=== PATIENT | female | born 1980 | race Caucasian/White ===

== ENCOUNTER 2018-03-28 14:59 | Inpatient (IN) | payer MEDICARE ==
[~2018-03-28] VITALS: Ht 165.1 cm; Wt 73.6 kg
[2018-03-28 16:00] VITALS: BP 127/77
[2018-03-28 16:25] VITALS: BP 127/77
[2018-03-28 16:41] LABS: BASO % 0.3 % (0.0-1.0); EOS % 0.1 % (1.0-4.0); HEMATOCRIT 39.2 % (37.0-47.0); HEMOGLOBIN 13.4 g/dl (12.0-16.0); LYMPH # 2.5 10*3/uL (1.3-4.4); LYMPH % 28.1 % (27.0-41.0); MEAN CORPUSCULAR HGB 32.1 pg (27.0-31.0); MEAN CORPUSCULAR HGB CONC 34.2 g/dl (33.0-37.0); MEAN PLATELET VOLUME 9.5 fl (9.6-12.3); MONO # 0.4 10*3/uL (0.1-1.0); MONO % 4.5 % (3.0-9.0); NEUT # 5.9 10*3/uL (2.3-7.9); NEUT % 66.7 % (47.0-73.0); PLATELET COUNT AUTOMATED 303 10*3/uL (130-400); RED BLOOD COUNT 4.17 10*6/uL (4.10-5.10); RED CELL DISTRI WIDTH 13.9 % (0-14.5); WHITE BLOOD COUNT 8.9 10*3/uL (4.8-10.8)
[2018-03-28 17:08] LABS: ALBUMIN 4.5 gm/dl (3.1-4.5); ALKALINE PHOSPHATASE 97 U/L (45-117); BUN 9 mg/dl (7-24); CHLORIDE 106 mmol/L (98-107); CREATININE 0.77 mg/dL (0.55-1.02); POTASSIUM 3.7 mmol/L (3.5-5.1); SGOT/AST 13 IU/L (3-35); SGPT/ALT 20 U/L (12-78); SODIUM 137 mmol/L (136-145); TOTAL PROTEIN 8.9 gm/dL (6.4-8.2)
[2018-03-28 17:16] LABS: BETA-HCG, QUANT < 1.0 mIU/mL (1-3); ETHYL ALCOHOL < 3.0 mg/dl (<3)
[2018-03-28 17:23] LABS: URINE AMPHETAMINES < 1000 (1000ng/ml); URINE BARBITURATES > 200 (200ng/ml); URINE BENZODIAZEPINES > 200 (200ng/ml); URINE CANNABINOIDS (THC) < 50 (50ng/ml); URINE COCAINE < 300 (300ng/ml); URINE METHADONE < 300 (300ng/ml); URINE OPIATES > 300 (300ng/ml)
[2018-03-28 17:27] LABS: URINE PHENCYCLIDINE < 25 (25ng/ml)
[2018-03-28 17:31] LABS: BILIRUBIN NEGATIVE (NEGATIVE); BLOOD NEGATIVE (NEGATIVE); CLARITY CLEAR (CLEAR); COLOR YELLOW (YELLOW); GLUCOSE NEGATIVE (NEGATIVE); KETONE NEGATIVE (NEGATIVE); LEUKO ESTERASE NEGATIVE (NEGATIVE); NITRITE NEGATIVE (NEGATIVE); SPECIFIC GRAVITY 1.025 (1.005-1.030); UROBILINOGEN 0.2 E.U./dl (0.2-1.0)
[2018-03-28] MEDS ORDERED: TOPIRAMATE PO (17:55)
[2018-03-28] MEDS ORDERED: XANAX2 M1 PO ×2 (17:55→18:47)
[2018-03-28] MEDS ORDERED: KLONOPIN1 M1 PO (17:56)
[2018-03-28] MEDS ORDERED: AMBIEN10 M1 PO (17:56)
[2018-03-28] MEDS ORDERED: REQUIP0.25 M1 PO (17:57)
[2018-03-28 18:01] LABS: BACTERIA 2+; MUCOUS 2+
[2018-03-28 20:00] VITALS: BP 132/84
[2018-03-29] VITALS: BP 114/72
[2018-03-29 08:00] VITALS: BP 104/60
[2018-03-29 12:00] VITALS: BP 113/67
[2018-03-29 16:00] VITALS: BP 111/65
[2018-03-29 20:00] VITALS: BP 111/64
[2018-03-30 00:30] VITALS: BP 96/52
[2018-03-30 07:07] LABS: BASO % 0.4 % (0.0-1.0); EOS # 0.1 10*3/uL (0.0-0.4); EOS % 1.9 % (1.0-4.0); HEMATOCRIT 36.8 % (37.0-47.0); HEMOGLOBIN 12.3 g/dl (12.0-16.0); MEAN CELL VOLUME 95.3 fl (81.0-99.0); MEAN CORPUSCULAR HGB 31.9 pg (27.0-31.0); MEAN CORPUSCULAR HGB CONC 33.4 g/dl (33.0-37.0); MONO # 0.6 10*3/uL (0.1-1.0); MONO % 7.4 % (3.0-9.0); NEUT # 2.8 10*3/uL (2.3-7.9); NEUT % 37.2 % (47.0-73.0); PLATELET COUNT AUTOMATED 225 10*3/uL (130-400); RED BLOOD COUNT 3.86 10*6/uL (4.10-5.10); RED CELL DISTRI WIDTH 14.3 % (0-14.5); WHITE BLOOD COUNT 7.5 10*3/uL (4.8-10.8)
[2018-03-30 07:33] LABS: CREATININE 0.85 mg/dL (0.55-1.02)
[2018-03-30 08:00] VITALS: BP 103/68; BP 104/62
[2018-03-30 12:00] VITALS: BP 111/43
[2018-03-30 16:00] VITALS: BP 119/36
[2018-03-30 20:00] VITALS: BP 101/68
[2018-03-31] VITALS: BP 91/49
[2018-03-31 08:00] VITALS: BP 111/60
[2018-03-31] MEDS ORDERED: ZOFRAN 4 MG ED2 TAB PO (11:30)
[2018-03-31] MEDS ORDERED: DICYCLOMINE HCL20 MG PO (11:30)
[2018-03-31] MEDS ORDERED: ATARAX,VISTARIL50 MG PO (11:30)
== END 2018-03-31 11:56 | disposition home or self-care (01) | DRG 897 ==
LOC: 4E 14:59
PROVIDERS: Internal Medicine
DX: F11.23 Opioid dependence with withdrawal (principal); F13.10 Sedative, hypnotic or anxiolytic abuse, uncomplicated; R82.71 Bacteriuria; F17.210 Nicotine dependence, cigarettes, uncomplicated; G40.409 Other generalized epilepsy and epileptic syndromes, not intractable, without status epilepticus; Z71.6 Tobacco abuse counseling; Z91.5 Personal history of self-harm; Z86.73 Personal history of transient ischemic attack (TIA), and cerebral infarction without residual deficits; Z90.49 Acquired absence of other specified parts of digestive tract; Z82.0 Family history of epilepsy and other diseases of the nervous system; Z84.89 Family history of other specified conditions; Z88.8 Allergy status to other drugs, medicaments and biological substances

== ENCOUNTER 2018-05-02 11:07 | Inpatient (IN) | payer MEDICARE ==
[~2018-05-02] VITALS: Ht 175.2 cm; Wt 74.8 kg
[~2018-05-02 11:07] MED LIST: AMBIEN10 M1 PO; ATARAX,VISTARIL50 MG PO; DICYCLOMINE HCL20 MG PO; KLONOPIN1 M1 PO; REQUIP0.25 M1 PO; TOPIRAMATE PO; XANAX2 M1 PO; ZOFRAN 4 MG ED2 TAB PO
[2018-05-02] MEDS ORDERED: TRINTELLIX10 MG PO (15:54)
[2018-05-02 16:00] VITALS: BP 107/58
[2018-05-02] MEDS ORDERED: CLINDAMYCIN150 MG PO (16:33)
[2018-05-02 17:00] LABS: BASO % 0.5 % (0.0-1.0); EOS # 0.2 10*3/uL (0.0-0.4); EOS % 3.9 % (1.0-4.0); HEMATOCRIT 37.6 % (37.0-47.0); HEMOGLOBIN 12.7 g/dl (12.0-16.0); LYMPH % 50.8 % (27.0-41.0); MEAN CELL VOLUME 94.2 fl (81.0-99.0); MEAN CORPUSCULAR HGB 31.8 pg (27.0-31.0); MEAN CORPUSCULAR HGB CONC 33.8 g/dl (33.0-37.0); MEAN PLATELET VOLUME 9.8 fl (9.6-12.3); MONO # 0.5 10*3/uL (0.1-1.0); MONO % 9.2 % (3.0-9.0); NEUT # 2.1 10*3/uL (2.3-7.9); NEUT % 35.4 % (47.0-73.0); PLATELET COUNT AUTOMATED 280 10*3/uL (130-400); RED BLOOD COUNT 3.99 10*6/uL (4.10-5.10); RED CELL DISTRI WIDTH 13.8 % (0-14.5); WHITE BLOOD COUNT 5.9 10*3/uL (4.8-10.8)
[2018-05-02 17:14] LABS: ALBUMIN 3.8 gm/dl (3.1-4.5); ALKALINE PHOSPHATASE 93 U/L (45-117); BUN 12 mg/dl (7-24); CHLORIDE 111 mmol/L (98-107); CREATININE 0.87 mg/dL (0.55-1.02); POTASSIUM 3.7 mmol/L (3.5-5.1); SGOT/AST 15 IU/L (3-35); SGPT/ALT 22 U/L (12-78); SODIUM 141 mmol/L (136-145); TOTAL PROTEIN 7.8 gm/dL (6.4-8.2)
[2018-05-02 17:15] LABS: ETHYL ALCOHOL < 3.0 mg/dl (<3)
[2018-05-02 17:17] LABS: BETA-HCG, QUANT < 1.0 mIU/mL (1-3)
[2018-05-02 18:29] LABS: BILIRUBIN NEGATIVE (NEGATIVE); BLOOD NEGATIVE (NEGATIVE); CLARITY SL CLOUDY (CLEAR); COLOR YELLOW (YELLOW); GLUCOSE NEGATIVE (NEGATIVE); KETONE NEGATIVE (NEGATIVE); LEUKO ESTERASE NEGATIVE (NEGATIVE); NITRITE NEGATIVE (NEGATIVE); UROBILINOGEN 0.2 E.U./dl (0.2-1.0)
[2018-05-02 18:36] LABS: URINE AMPHETAMINES < 1000 (1000ng/ml); URINE BARBITURATES < 200 (200ng/ml); URINE BENZODIAZEPINES > 200 (200ng/ml); URINE CANNABINOIDS (THC) < 50 (50ng/ml); URINE COCAINE > 300 (300ng/ml); URINE METHADONE < 300 (300ng/ml); URINE OPIATES > 300 (300ng/ml)
[2018-05-02 18:42] LABS: BACTERIA TRACE; RBC 0-2 rbc/hpf (0-2)
[2018-05-02 18:47] LABS: URINE PHENCYCLIDINE < 25 (25ng/ml)
[2018-05-02 20:00] VITALS: BP 110/56
[2018-05-03] VITALS: BP 119/72
[2018-05-03 08:00] VITALS: BP 105/57
[2018-05-03 12:00] VITALS: BP 104/67
[2018-05-03 16:00] VITALS: BP 112/53
[2018-05-03 20:00] VITALS: BP 118/73
[2018-05-04] VITALS: BP 109/65
[2018-05-04 08:00] VITALS: BP 109/66
[2018-05-04 08:04] LABS: BASO % 0.4 % (0.0-1.0); EOS # 0.2 10*3/uL (0.0-0.4); EOS % 2.2 % (1.0-4.0); HEMATOCRIT 38.7 % (37.0-47.0); HEMOGLOBIN 13.2 g/dl (12.0-16.0); LYMPH % 53.1 % (27.0-41.0); MEAN CELL VOLUME 93.9 fl (81.0-99.0); MEAN CORPUSCULAR HGB CONC 34.1 g/dl (33.0-37.0); MONO # 0.6 10*3/uL (0.1-1.0); MONO % 7.4 % (3.0-9.0); NEUT # 2.8 10*3/uL (2.3-7.9); NEUT % 36.8 % (47.0-73.0); PLATELET COUNT AUTOMATED 284 10*3/uL (130-400); RED BLOOD COUNT 4.12 10*6/uL (4.10-5.10); RED CELL DISTRI WIDTH 13.8 % (0-14.5); WHITE BLOOD COUNT 7.6 10*3/uL (4.8-10.8)
[2018-05-04 12:00] VITALS: BP 110/63
[2018-05-04 16:00] VITALS: BP 102/68
[2018-05-04 20:00] VITALS: BP 105/61
[2018-05-05] VITALS: BP 92/50
[2018-05-05 08:00] VITALS: BP 100/60
[2018-05-05] MEDS ORDERED: ATARAX,VISTARIL50 MG PO (10:09)
[2018-05-05] MEDS ORDERED: ZOFRAN 4 MG ED2 TAB PO (10:09)
== END 2018-05-05 10:23 | disposition home or self-care (01) | DRG 897 ==
LOC: 4E 11:07
PROVIDERS: Family Medicine
DX: F11.23 Opioid dependence with withdrawal (principal); F13.10 Sedative, hypnotic or anxiolytic abuse, uncomplicated; G40.409 Other generalized epilepsy and epileptic syndromes, not intractable, without status epilepticus; F17.210 Nicotine dependence, cigarettes, uncomplicated; Z71.6 Tobacco abuse counseling; Z90.49 Acquired absence of other specified parts of digestive tract; Z91.5 Personal history of self-harm; Z86.73 Personal history of transient ischemic attack (TIA), and cerebral infarction without residual deficits; Z81.8 Family history of other mental and behavioral disorders; Z82.0 Family history of epilepsy and other diseases of the nervous system; Z88.8 Allergy status to other drugs, medicaments and biological substances; Z79.899 Other long term (current) drug therapy